=== PATIENT | male | born 1980 | race Caucasian/White ===

== ENCOUNTER 2021-09-03 07:11 | Day surgery (SDC) | payer BC, SELFPAY ==
[2021-09-03] VITALS (13 sets, daily range): BP systolic 122–139; BP diastolic 72–86; PULSE 61–86; RESP 12–16; TEMP 36.6–36.9; O2SAT 90–94; BMI 37.1
[2021-09-03] MEDS: LACTATED RINGERS 1000 ML 1,000 ML 100 ML IV (07:48)
[2021-09-03] MEDS: OXYMETAZOLINE 0.05% NASAL SPRAY 2 SPRAY NOSTRIL-B (07:48)
[2021-09-03] MEDS: SODIUM CHLORIDE 0.9 % (FLUSH) 10 ML SYRINGE IVF (07:52)
--- NOTE | 2021-09-03 08:55 | W.PM.ENTPROC ---
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 The left ear canal was inspected with the operating microscope and an inferior radial myringotomy incision was made. A large amount of serous fluid was aspirated. This was repeated on the right side in identical fashion with identical findings. The McIvor mouthgag was inserted and the tongue retracted forward. Visualization was quite difficult due to the patient's anatomy. I did amputate the lower 3rd of the uvula to obtain access to the nasopharynx. A 0 degree endoscope was used a through the right nostril and the nasopharyngeal mass was biopsied 3 biopsies were taken. Then I went in trans orally. Two red rubber catheters were placed 1 in each nostril and pulled out through the mouth to retract the palate. I was able to vaporize the tissue at the nasal choana. This was quite difficult due to poor visualization. Patient was extubated in the operating room taken recovery in satisfactory condition blood loss was less than 10 mL. Anesthesia Type: General Surgeon: Kavin Canchola MD Estimated blood loss (mL): 10 Pathology: specimen obtained, sent to pathology Condition: stable
--- NOTE | 2021-09-03 09:29 | W.ANESCHARGE ---
Anesthesia Charges Start Date/Time Anesthesia Start Date: 09/03/21 Anesthesia Start Time: 08:00 Stop Date/Time Anesthesia Stop Date: 09/03/21 Anesthesia Stop Time: 08:46 Summary Emergency: No
--- NOTE | 2021-09-03 10:03 | W.ANESCHARGE ---
Anesthesia Charges Start Date/Time Anesthesia Start Date: 09/03/21 Anesthesia Start Time: 08:00 Stop Date/Time Anesthesia Stop Date: 09/03/21 Anesthesia Stop Time: 08:46 Summary Emergency: No
== END 2021-09-03 10:45 | disposition home or self-care (01) ==
PROVIDERS: PCP Family Medicine; Visit Provider Otolaryngology
PROC: (CPT 69420; principal; 2021-09-03 08:15)
PROC: (CPT 69421; 2021-09-03 08:15)
DX: H65.93 Unspecified nonsuppurative otitis media, bilateral (principal); J34.89 Other specified disorders of nose and nasal sinuses
CPT/HCPCS: 69421; 42999; 00170; 88305; 88341; 88342; J0330; J1100; J2405; J2704; J3010; J7120

== ENCOUNTER 2024-02-14 15:57 | Outpatient (CLI) | payer BC, SELFPAY | END 2024-02-14 15:58 | disposition home or self-care (01) | PROVIDERS: PCP Family Medicine; Visit Provider Emergency Medicine | DX: I10 Essential (primary) hypertension (principal); E78.1 Pure hyperglyceridemia | CPT/HCPCS: 80048; 80061 ==